=== PATIENT | female | born 1995 | race Caucasian/White ===

== ENCOUNTER 2018-02-19 23:13 | Emergency (ER) | payer MEDICAID ==
[~2018-02-19] VITALS: Ht 160 cm; Wt 107.0 kg
[2018-02-19 23:18] VITALS: BP 126/80; Ht 160 cm; Wt 107.0 kg
== END 2018-02-20 03:04 | disposition left against medical advice (07) ==
LOC: ED 23:13
DX: Z53.21 Procedure and treatment not carried out due to patient leaving prior to being seen by health care provider (principal)